=== PATIENT | female | born 1975 ===

== ENCOUNTER 2025-08-14 03:33 | Outpatient (CLI) | payer SELFPAY ==
[2025-08-14] MEDS: Inhaler, Assist Device 1 EACH MC (16:30)
[2025-08-14] MEDS: Levalbuterol HFA 15 GM INH 4 PUFF IH (16:30)
--- NOTE | 2025-08-15 08:18 | W.PFT ---
Date of service: 08/14/25 Time of Service: 14:40 Pulmonary Function Test Result Indications: Dyspnea Impression 1. Good patient effort was noted. ATS standards for reproducibility were met. 2. Spirometry showed mild obstructive lung disease with an FEV1 of 87% (2.72 L). FEV1 improved to 90% post-bronchodilator. 3. Following the administration of a bronchodilator there was not a significant response 4. TLC was normal. No evidence of restrictive lung disease 5. DLCO was normal at 117% predicted
== END 2025-08-14 03:34 | disposition home or self-care (01) ==
PROVIDERS: Visit Provider Internal Medicine Pulmonary Disease
DX: R06.00 Dyspnea, unspecified (principal); J44.9 Chronic obstructive pulmonary disease, unspecified
CPT/HCPCS: 94060; 94726; 94729